=== PATIENT | female | born 1985 | race American Indian/Alaskan Native ===

== ENCOUNTER 2018-04-02 10:38 | Emergency (ER) | payer SELFPAY ==
[2018-04-02 10:56] VITALS: BP 124/76
[2018-04-02] MEDS ORDERED: IBUPROFEN PO ONE (11:11)
--- NOTE | 2018-04-02 11:15 | Emergency Department Report ---
ED Upper Extremity Inj HPI - General Chief Complaint: Extremity Injury, Upper Stated Complaint: SHARP PAIN/RT HAND/ARM NUMB Time Seen by Provider: 04/02/18 11:06 Source: patient Mode of arrival: Ambulatory Limitations: No Limitations - History of Present Illness Initial Comments: This is a 33-year-old female nontoxic, well nourished in appearance, no acute signs of distress presents to the ED with c/o of bilateral hand/wrist pain 3 days. Patient stated that right side is worse then left side. Patient stated has a shooting pain with some tingling sensation to 1st, 2nd, and 3rd fingers of right hand. 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 Patient denies any other trauma. Patient denies any numbness, tingling, fever, chills, nausea, vomiting, chest pain, shortness of breath, headache, stiff neck. Patient denies any joint swelling or joint redness. Patient denies decreased range of motion. Patient denies any allergies or significant past medical history. MD Complaint: Injury to:: left, right, wrist, hand -: days(s) (3) Other Extremity Injury: Hand: Right, Left, Wrist: Left, Right Other Injuries: none Place: work Severity scale (0 -10): 3 Improves With: immobilization Worsens With: movement of extremity Associated Symptoms: denies other symptoms. denies: weakness, numbness, neck pain, suspects foreign body, nausea/vomiting, heard/felt popping sensat - Related Data Previous Rx's Medication Instructions Recorded Last Taken Type ALBUTEROL Inhaler (OR & NICU) 2 puff IH QID PRN #1 inhalation 02/18/18 Unknown Rx [ProAir HFA Inhaler] Amoxicillin/Potassium Clav 1 each PO BID #14 tablet 02/18/18 Unknown Rx [Augmentin 875-125 Tablet] Fluticasone [Flonase] 1 spray NS QDAY #1 bottle 02/18/18 Unknown Rx HYDROcodone/APAP 5-325 [[place] 1 each PO Q4HR PRN #12 tablet 02/18/18 Unknown Rx 5/325] Naproxen [Naprosyn TAB] 500 mg PO Q8H PRN #20 tablet 04/02/18 Unknown Rx Allergies Allergy/AdvReac Type Severity Reaction Status Date / Time No Known Allergies Allergy Verified 04/02/18 10:56 ED Review of Systems ROS: Stated complaint: SHARP PAIN/RT HAND/ARM NUMB Other details as noted in HPI Constitutional: denies: chills, fever Eyes: denies: eye pain, eye discharge, vision change ENT: denies: ear pain, throat pain Respiratory: denies: cough, shortness of breath, wheezing Cardiovascular: denies: chest pain, palpitations Endocrine: no symptoms reported Gastrointestinal: denies: abdominal pain, nausea, diarrhea Genitourinary: denies: urgency, dysuria, discharge Musculoskeletal: arthralgia. denies: back pain, joint swelling Skin: denies: rash, lesions Neurological: denies: headache, weakness, paresthesias Psychiatric: denies: anxiety, depression Hematological/Lymphatic: denies: easy bleeding, easy bruising ED Past Medical Hx - Past Medical History Previous Medical History?: No Hx Hypertension: Yes - Surgical History Past Surgical History?: No - Social History Smoking Status: Current Every Day Smoker Substance Use Type: Alcohol, Marijuana - Medications Home Medications: Home Medications Medication Instructions Recorded Confirmed Last Taken Type ALBUTEROL Inhaler (OR & NICU) 2 puff IH QID PRN #1 inhalation 02/18/18 Unknown Rx [ProAir HFA Inhaler] Amoxicillin/Potassium Clav 1 each PO BID #14 tablet 02/18/18 Unknown Rx [Augmentin 875-125 Tablet] Fluticasone [Flonase] 1 spray NS QDAY #1 bottle 02/18/18 Unknown Rx HYDROcodone/APAP 5-325 [[place] 1 each PO Q4HR PRN #12 tablet 02/18/18 Unknown Rx 5/325] Naproxen [Naprosyn TAB] 500 mg PO Q8H PRN #20 tablet 04/02/18 Unknown Rx ED Physical Exam - General Limitations: No Limitations General appearance: alert, in no apparent distress - Head Head exam: Present: atraumatic, normocephalic - Neck Neck exam: Present: normal inspection, full ROM - Extremities Exam Extremities exam: Present: normal inspection, full ROM, normal capillary refill. Absent: tenderness, joint swelling - Expanded Upper Extremity Exam Left General: Present: normal inspection (bilateral exam) Shoulder Exam: Present: normal inspection (bilateral exam), full ROM (bilateral exam) Upper Arm exam: Present: normal inspection (bilateral exam), full ROM (bilateral exam) Elbow exam: Present: normal inspection (bilateral exam), full ROM (bilateral exam) Forearm Wrist exam: Present: normal inspection (bilateral exam), full ROM (bilateral exam). Absent: tenderness, swelling, abrasion, laceration, ecchymosis, deformity, dislocation, erythema, tenderness over anatomical snuff box, pain with axial thumb loading Hand Wrist exam: Present: normal inspection (bilateral exam), full ROM (bila teral exam), other (positive phalens test to right hand). Absent: tenderness, swelling, abrasion, laceration, ecchymosis, deformity, crepidus, dislocation, erythema, amputation, nail avulsion, subungual hematoma Neurosensory exam: Present: radial nerve intact, ulnar nerve intact, median nerve intact Vascular: Present: vascular compromise, normal capillary refill - Back Exam Back exam: Present: normal inspection, full ROM - Neurological Exam Neurological exam: Present: alert, oriented X3 - Psychiatric Psychiatric exam: Present: normal affect, normal mood - Skin Skin exam: Present: warm, dry, intact, normal color. Absent: rash ED Course Vital Signs 04/02/18 10:54 Temperature 97.8 F Pulse Rate 84 Respiratory 18 Rate Blood Pressure 124/76 O2 Sat by Pulse 98 Oximetry - Reevaluation(s) Reevaluation #1: 04/02/18 11:15 Patient is speaking in full sentences with no signs of distress noted. ED Medical Decision Making - Medical Decision Making This is a 33-year-old female that presents with arthralgias and right carpal tunnel syndrome. Patient is stable and was examined by me. I referred patient to an orthopedic doctor for further evaluation for possible MRI. Patient does have normal ROM with no tenderness and no joint swelling. No ecchymosis. no joint redness or swelling. Not warm to touch. No signs of cellulites present. Patient received a wrist immobilize to right wrist for pain comfort. Patient wa s instructed to RICE therapy. Patient received Motrin for pain. Patient is discharged with Naproxen. At time of discharge, the patient does not seem toxic or ill in appearance. No acute signs of distress noted. Patient agrees to discharge treatment plan of care. No further questions noted by the patient. Critical care attestation.: If time is entered above; I have spent that time in minutes in the direct care of this critically ill patient, excluding procedure time. ED Disposition Clinical Impression: Right carpal tunnel syndrome Arthralgia Qualifiers: Joint pain location: wrist Laterality: bilateral Qualified Code(s): M25.531 - Pain in right wrist; M25.532 - Pain in left wrist Disposition: TO HOME OR SELFCARE Is pt being admited?: No Does the pt Need Aspirin: No Condition: Stable Instructions: Carpal Tunnel Syndrome (ED), Arthralgia (ED) Additional Instructions: Follow-up with a orthopedic doctor in 3-5 days or if symptoms worsen and continue return to emergency room as soon as possible. Prescriptions: Naproxen [Naprosyn TAB] 500 mg PO Q8H PRN #20 tablet PRN Reason: Pain, Moderate (4-6) Referrals: PRIMARY CAREMD [Referring] - 3-5 Days SISSY NICOLE MD [Staff Physician] - 3-5 Days [facility] [Outside] - 3-5 Days Forms: Work/School Release Form(ED)
== END 2018-04-02 11:27 | disposition home or self-care (01) ==
LOC: ED 10:38
DX: G56.03 Carpal tunnel syndrome, bilateral upper limbs (principal)

== ENCOUNTER 2018-05-13 15:19 | Emergency (ER) | payer OTHER ==
--- NOTE | 2018-05-13 15:49 | Emergency Department Report ---
Blank Doc - Documentation Documentation: Come in for nausea right flank pain. Swelling of her ankles. Hx/o no dyuria, Increase urine frequency. Took Ibuprofen. This initial assessment diagnostic orders/clinical plan/treatment (s) is/Are subject change based on patient's health status, clinical progression and re- assessment by fellow clinical providers in the ED. Further treatment and work-up at subsequent clinical providers discretion. Patient/guardians urged not to elope from s their condition may be serious if not clinically assessed and managed. Inital order include:
[2018-05-13 16:19] LABS: Bilirubin,Urine NEG (Negative); Blood,Urine NEG (Negative); Color,Urine Straw (Yellow); Protein,Urine <15 mg/dL mg/dL (Negative); Urobilinogen,Urine < 2.0 mg/dL (<2.0)
[2018-05-13 16:35] LABS: Basophils # (Auto) 0.1 K/mm3 (0.0-0.1); Basophils % (Auto) 0.7 % (0.0-1.8); Eosinophils # (Auto) 0.4 K/mm3 (0.0-0.4); Eosinophils % (Auto) 5.7 % (0.0-4.3); Hematocrit 41.7 % (30.3-42.9); Lymphocytes # (Auto) 2.1 K/mm3 (1.2-5.4); Lymphocytes % (Auto) 30.5 % (13.4-35.0); Mean Corpuscular HGB Conc 34 % (30-34); Mean Corpuscular Volume 94 fl (79-97); Monocytes # (Auto) 0.3 K/mm3 (0.0-0.8); Monocytes % (Auto) 5.1 % (0.0-7.3); Platelet Count 195 K/mm3 (140-440); Red Blood Count 4.43 M/mm3 (3.65-5.03); Red Cell Distribution Width 14.5 % (13.2-15.2)
[2018-05-13 16:58] LABS: Alanine Aminotransferase 15 units/L (7-56); Albumin 3.7 g/dL (3.9-5); BUN/Creatinine Ratio 16; Blood Urea Nitrogen 11 mg/dL (7-17); Calcium 8.9 mg/dL (8.4-10.2); Hemolysis Index 6
--- NOTE | 2018-05-13 17:45 | Emergency Department Report ---
ED General Adult HPI - General Chief complaint: Pain General Stated complaint: RT SIDE ANKLE SWELLING/CHEST PAIN Time Seen by Provider: 05/13/18 15:45 Source: patient Mode of arrival: Ambulatory Limitations: No Limitations - History of Present Illness Initial comments: 33-year-old female with multiple complaints over the last 3 days including headache, right flank pain, generalized chest pain, bilateral ankle swelling. Patient denies fever, cough, shortness of breath. Patient reports urinary frequency, denies dysuria or hematuria. Patient reports history of hypertension, however not on any medication at this time. 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 -: days(s) (3) Location: head, chest, back, left, right, lower extremity Severity scale (0 -10): 10 Quality: aching Consistency: intermittent Improves with: immobilization Worsens with: movement Associated Symptoms: chest pain, headaches. denies: cough, fever/chills, nausea/vomiting, shortness of breath Treatments Prior to Arrival: NSAID - Related Data Previous Rx's Medication Instructions Recorded Last Taken Type ALBUTEROL Inhaler (OR & NICU) 2 puff IH QID PRN #1 inhalation 02/18/18 Unknown Rx [ProAir HFA Inhaler] Amoxicillin/Potassium Clav 1 each PO BID #14 tablet 02/18/18 Unknown Rx [Augmentin 875-125 Tablet] Fluticasone [Flonase] 1 spray NS QDAY #1 bottle 02/18/18 Unknown Rx HYDROcodone/APAP 5-325 [[place] 1 each PO Q4HR PRN #12 tablet 02/18/18 Unknown Rx 5/325] Naproxen [Naprosyn TAB] 500 mg PO Q8H PRN #20 tablet 04/02/18 Unknown Rx Amoxicillin [Trimox CAP] 500 mg PO Q8H #30 capsule 04/27/18 Unknown Rx Ibuprofen [Motrin 600 MG tab] 600 mg PO Q8H #15 tablet 04/27/18 Unknown Rx Methocarbamol [Robaxin-750] 750 mg PO Q6HR PRN #20 tablet 05/13/18 Unknown Rx hydroCHLOROthiazide [Hctz] 12.5 mg PO QDAY #30 capsule 05/13/18 Unknown Rx Allergies Allergy/AdvReac Type Severity Reaction Status Date / Time No Known Allergies Allergy Verified 05/13/18 15:20 ED Review of Systems ROS: Stated complaint: RT SIDE ANKLE SWELLING/CHEST PAIN Other details as noted in HPI Comment: All other systems reviewed and negative Constitutional: denies: chills, fever Respiratory: denies: cough, shortness of breath Cardiovascular: chest pain Gastrointestinal: denies: abdominal pain, nausea, vomiting, diarrhea Genitourinary: frequency. denies: dysuria, hematuria Musculoskeletal: back pain Neurological: headache. denies: weakness, numbness ED Past Medical Hx - Past Medical History Hx Hypertension: Yes - Surgical History Past Surgical History?: No - Social History Smoking Status: Never Smoker Substance Use Type: Marijuana - Medications Home Medications: Home Medications Medication Instructions Recorded Confirmed Last Taken Type ALBUTEROL Inhaler (OR & NICU) 2 puff IH QID PRN #1 inhalation 02/18/18 Unknown Rx [ProAir HFA Inhaler] Amoxicillin/Potassium Clav 1 each PO BID #14 tablet 02/18/18 Unknown Rx [Augmentin 875-125 Tablet] Fluticasone [Flonase] 1 spray NS QDAY #1 bottle 02/18/18 Unknown Rx HYDROcodone/APAP 5-325 [[place] 1 each PO Q4HR PRN #12 tablet 02/18/18 Unknown Rx 5/325] Naproxen [Naprosyn TAB] 500 mg PO Q8H PRN #20 tablet 04/02/18 Unknown Rx Amoxicillin [Trimox CAP] 500 mg PO Q8H #30 capsule 04/27/18 Unknown Rx Ibuprofen [Motrin 600 MG tab] 600 mg PO Q8H #15 tablet 04/27/18 Unknown Rx Methocarbamol [Robaxin-750] 750 mg PO Q6HR PRN #20 tablet 05/13/18 Unknown Rx hydroCHLOROthiazide [Hctz] 12.5 mg PO QDAY #30 capsule 05/13/18 Unknown Rx ED Physical Exam - General Limitations: No Limitations General appearance: alert, in no apparent distress - Head Head exam: Present: atraumatic, normocephalic - Eye Eye exam: Present: normal appearance - ENT ENT exam: Present: mucous membranes moist - Neck Neck exam: Present: normal inspection - Respiratory Respiratory exam: Present: normal lung sounds bilaterally. Absent: respiratory distress - Cardiovascular Cardiovascular Exam: Present: regular rate, normal rhythm - GI/Abdominal GI/Abdominal exam: Present: soft. Absent: distended, tenderness - Extremities Exam Extremities exam: Present: pedal edema (trace edema bilateral ankles). Absent: calf tenderness - Back Exam Back exam: Present: paraspinal tenderness (right mid back) - Neurological Exam Neurological exam: Present: alert, oriented X3, CN II-XII intact. Absent: motor sensory deficit - Psychiatric Psychiatric exam: Present: normal affect, normal mood - Skin Skin exam: Present: warm, dry, intact, normal color ED Course Vital Signs 05/13/18 05/13/18 15:42 18:35 Temperature 97.9 F Pulse Rate 97 H 81 Respiratory 18 18 Rate Blood Pressure 160/94 Blood Pressure 154/94 [Left] O2 Sat by Pulse 98 100 Oximetry ED Medical Decision Making - Lab Data Result diagrams: 05/13/18 16:05 05/13/18 16:05 - EKG Data -: EKG Interpreted by Me EKG shows normal: sinus rhythm, axis, intervals, QRS complexes, ST-T waves Rate: normal - EKG Data Interpretation: no acute changes - Radiology Data Radiology results: image reviewed interpreted by me: CXR: neg acute - Medical Decision Making Workup is unremarkable. Labs normal, chest x-ray, EKG, troponin all normal. UA normal. Patient likely with ankle edema and back strain due to strenuous nature of her job. The patient has untreated hypertension, so eill place her on HCTZ which will also help with her ankle swelling. Renal function normal. Patient will also receive a prescription for Robaxin for muscle strain. She has been given information for outpatient follow-up. Return precautions given. - Differential Diagnosis UTI, pyelonephritis, atypical chest pain, costochondritis, ACS Critical care attestation.: If time is entered above; I have spent that time in minutes in the direct care of this critically ill patient, excluding procedure time. ED Disposition Clinical Impression: Acute myofascial strain, Essential hypertension, Atypical chest pain Disposition: TO HOME OR SELFCARE Is pt being admited?: No Condition: Stable Instructions: Chest Pain (ED), Muscle Strain (ED), Hypertension (ED) Prescriptions: hydroCHLOROthiazide [Hctz] 12.5 mg PO QDAY #30 capsule Methocarbamol [Robaxin-750] 750 mg PO Q6HR PRN #20 tablet PRN Reason: Spasms Referrals: ISMA SAGE MD [Primary Care Provider] - 3-5 Days ARMAND VOGEL MD [Staff Physician] - 3-5 Days Time of Disposition: 18:21
[2018-05-13 18:37] VITALS: BP 154/94
--- NOTE | 2018-05-13 19:01 | XRay Report ---
FINAL REPORT EXAM: XR CHEST ROUTINE 2V HISTORY: pain swollen ankles for 3 days. TECHNIQUE: PA and lateral views of the chest Comparison: None FINDINGS: There is no evidence of infiltrate, pneumothorax or pleural fluid collection. The cardiac silhouette appears to be enlarged. The thoracic aorta and bony structures are unremarkable. IMPRESSION: 1. No evidence of an acute pulmonary process. 2. Enlarged cardiac silhouette.
== END 2018-05-13 18:37 | disposition home or self-care (01) ==
LOC: ED 15:19
DX: S39.012A Strain of muscle, fascia and tendon of lower back, initial encounter (principal); I10 Essential (primary) hypertension; F12.10 Cannabis abuse, uncomplicated; Z79.899 Other long term (current) drug therapy; X50.3XXA Overexertion from repetitive movements, initial encounter; Y93.89 Activity, other specified; Y92.89 Other specified places as the place of occurrence of the external cause; Y99.8 Other external cause status
CPT/HCPCS: 36415; 71046; 80053; 81001; 84484; 84703; 85025; 93005; 93010

== ENCOUNTER 2018-05-25 19:53 | Emergency (ER) | payer OTHER ==
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
[2018-05-25 20:10] VITALS: BP 147/98
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
== END 2018-05-25 23:15 | disposition left against medical advice (07) ==
LOC: ED 19:53
DX: M25.511 Pain in right shoulder (principal); M54.5 Low back pain; R10.9 Unspecified abdominal pain; Z53.21 Procedure and treatment not carried out due to patient leaving prior to being seen by health care provider
CPT/HCPCS: 72100

== ENCOUNTER 2018-06-22 09:33 | Emergency (ER) | payer SELFPAY ==
[2018-06-22 09:46] VITALS: BP 116/74
[2018-06-22] MEDS ORDERED: TORADOL IM ONE (11:19)
[2018-06-22] MEDS ORDERED: ZOFRAN ODT PO ONE (11:20)
[2018-06-22] MEDS ORDERED: SOLU-Medrol IM ONE (11:20)
[2018-06-22] MEDS ORDERED: NORCO 10/325 PO ONE (11:20)
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
== END 2018-06-22 11:59 | disposition home or self-care (01) ==
LOC: ED 09:33
DX: S16.1XXA Strain of muscle, fascia and tendon at neck level, initial encounter (principal); I10 Essential (primary) hypertension; F17.200 Nicotine dependence, unspecified, uncomplicated
CPT/HCPCS: 96372; 99282; J1885; J2930; Q0162

== ENCOUNTER 2018-08-23 00:51 | Emergency (ER) | payer SELFPAY ==
[2018-08-23 01:02] VITALS: BP 137/77
[2018-08-23 01:22] LABS: HCG Qualitative,Urine Negative (Negative)
--- NOTE | 2018-08-23 01:26 | Emergency Department Report ---
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 Fall Witnessed: no Place Fall Occurred: home Loss of Consciousness: none Prolonged Down Time?: no Symptoms Prior to Fall: none Location: back Location - Extremities: Left: Ankle Severity: mild Severity scale (0 -10): 1 (masses is) Context: tripped/slipped ( all) - Related Data Previous Rx's Medication Instructions Recorded Last Taken Type ALBUTEROL Inhaler (OR & NICU) 2 puff IH QID PRN #1 inhalation 02/18/18 Unknown Rx [ProAir HFA Inhaler] Amoxicillin/Potassium Clav 1 each PO BID #14 tablet 02/18/18 Unknown Rx [Augmentin 875-125 Tablet] Fluticasone [Flonase] 1 spray NS QDAY #1 bottle 02/18/18 Unknown Rx HYDROcodone/APAP 5-325 [[place] 1 each PO Q4HR PRN #12 tablet 02/18/18 Unknown Rx 5/325] Naproxen [Naprosyn TAB] 500 mg PO Q8H PRN #20 tablet 04/02/18 Unknown Rx Amoxicillin [Trimox CAP] 500 mg PO Q8H #30 capsule 04/27/18 Unknown Rx Ibuprofen [Motrin 600 MG tab] 600 mg PO Q8H #15 tablet 04/27/18 Unknown Rx Methocarbamol [Robaxin-750] 750 mg PO Q6HR PRN #20 tablet 05/13/18 Unknown Rx hydroCHLOROthiazide [Hctz] 12.5 mg PO QDAY #30 capsule 05/13/18 Unknown Rx Ibuprofen [Motrin] 800 mg PO Q8HR PRN #30 tablet 06/22/18 Unknown Rx traMADol [Ultram] 50 mg PO Q6HR PRN #24 tablet 06/22/18 Unknown Rx Cyclobenzaprine [Flexeril] 10 mg PO TID PRN #30 tablet 08/23/18 Unknown Rx Naproxen [Naprosyn TAB] 500 mg PO BID #30 tablet 08/23/18 Unknown Rx Allergies Allergy/AdvReac Type Severity Reaction Status Date / Time No Known Allergies Allergy Verified 05/13/18 15:20 ED Review of Systems ROS: Stated complaint: FALL/BACK PAIN Other details as noted in HPI Constitutional: denies: chills, fever Eyes: denies: eye pain, eye discharge, vision change ENT: denies: ear pain, throat pain Respiratory: denies: cough, shortness of breath, wheezing Cardiovascular: denies: chest pain, palpitations Endocrine: no symptoms reported Gastrointestinal: denies: abdominal pain, nausea, diarrhea Genitourinary: denies: urgency, dysuria, discharge Musculoskeletal: back pain, other. denies: joint swelling, arthralgia (shoulder pain right lateral ), myalgia Skin: denies: rash, lesions Neurological: denies: headache, weakness, paresthesias Psychiatric: denies: anxiety, depression Hematological/Lymphatic: denies: easy bleeding, easy bruising ED Past Medical Hx - Past Medical History Previous Medical History?: Yes Hx Hypertension: Yes Additional medical history: Morbid Obesity - Surgical History Past Surgical History?: No - Social History Smoking Status: Current Every Day Smoker Substance Use Type: None, Alcohol - Medications Home Medications: Home Medications Medication Instructions Recorded Confirmed Last Taken Type ALBUTEROL Inhaler (OR & NICU) 2 puff IH QID PRN #1 inhalation 02/18/18 Unknown Rx [ProAir HFA Inhaler] Amoxicillin/Potassium Clav 1 each PO BID #14 tablet 02/18/18 Unknown Rx [Augmentin 875-125 Tablet] Fluticasone [Flonase] 1 spray NS QDAY #1 bottle 02/18/18 Unknown Rx HYDROcodone/APAP 5-325 [[place] 1 each PO Q4HR PRN #12 tablet 02/18/18 Unknown Rx 5/325] Naproxen [Naprosyn TAB] 500 mg PO Q8H PRN #20 tablet 04/02/18 Unknown Rx Amoxicillin [Trimox CAP] 500 mg PO Q8H #30 capsule 04/27/18 Unknown Rx Ibuprofen [Motrin 600 MG tab] 600 mg PO Q8H #15 tablet 04/27/18 Unknown Rx Methocarbamol [Robaxin-750] 750 mg PO Q6HR PRN #20 tablet 05/13/18 Unknown Rx hydroCHLOROthiazide [Hctz] 12.5 mg PO QDAY #30 capsule 05/13/18 Unknown Rx Ibuprofen [Motrin] 800 mg PO Q8HR PRN #30 tablet 06/22/18 Unknown Rx traMADol [Ultram] 50 mg PO Q6HR PRN #24 tablet 06/22/18 Unknown Rx Cyclobenzaprine [Flexeril] 10 mg PO TID PRN #30 tablet 08/23/18 Unknown Rx Naproxen [Naprosyn TAB] 500 mg PO BID #30 tablet 08/23/18 Unknown Rx ED Physical Exam - General Limitations: No Limitations General appearance: alert, in no apparent distress - Head Head exam: Present: normocephalic, normal inspection - Expanded Head Exam Expanded Head exam: Absent: laceration, abrasion, contusion, hematoma, racoon eyes, alcazar's sign, tenderness of temporal artery, CSF rhinorrhea, CSF otorrhea - Eye Eye exam: Present: normal appearance, PERRL. Absent: scleral icterus, nystagmus Pupils: Present: normal accommodation, mydriatic - ENT ENT exam: Present: mucous membranes moist - Neck Neck exam: Present: normal inspection, tenderness, full ROM, lymphadenopathy. Absent: meningismus - Respiratory Respiratory exam: Present: normal lung sounds bilaterally. Absent: respiratory distress - Cardiovascular Cardiovascular Exam: Present: regular rate, normal rhythm, normal heart sounds. Absent: systolic murmur, diastolic murmur, rubs, gallop - GI/Abdominal GI/Abdominal exam: Present: soft, guarding, rebound, normal bowel sounds, bruit, hernia. Absent: tenderness - Rectal Rectal exam: Present: deferred - External exam: Present: normal external exam - Extremities Exam Extremities exam: Present: normal inspection, full ROM, tenderness - Back Exam Back exam: Present: normal inspection, full ROM, tenderness (mild bilat neck bon str. ), muscle spasm, rash noted. Absent: CVA tenderness (R), CVA tenderness (L), paraspinal tenderness, vertebral tenderness - Expanded Back Exam Expanded Back exam: Present: intact bulbocavernosus reflex, saddle anesthesia, normal rectal tone, decreased rectal tone Back exam: Sciatic Notch Tenderness: Right, Positive Straight Leg Raise: Right - Neurological Exam Neurological exam: Present: alert, altered, oriented X3, CN II-XII intact, normal gait, abnormal gait, reflexes normal - Expanded Neurological Exam Expanded Neurological exam: Present: innattentive Patient oriented to: Present: person, place, time Speech: Present: fluid speech Cranial nerves: EOM's Intact: Normal, Gag Reflex: Normal, Tongue Deviation: Normal, Nystagmus: Normal, Facial Sensation: Normal, Facial Palsy with Forehead Movement: Normal, Facial Palsy without Forehead Movement: Normal Cerebellar function: Finger to Nose: Normal, Heel to Richard: Normal, Romberg: Normal Upper motor neuron: Arie Neglect: Normal, Pronator Drift: Normal, Babinski Sign: Normal, Sensory Extinction: Normal Sensory exam: Upper Extremity Light Touch: Normal, Upper Extremity Pin Prick: Normal, Lower Extremity Temperature: Normal, LE 2 Point Discrimination: Normal Motor strength exam: RUE: 5, LUE: 5, RLE: 5, LLE: 5 DTR: bicep (R): 0, bicep (L): 0, tricep (R): 0, tricep (L): 0, knee (R): 0 Best Eye Response ([place]): (4) open spontaneously Best Motor Response ([place]): (6) obeys commands Best Verbal Response ([place]): (5) oriented Lizeth Total: 15 - Psychiatric Psychiatric exam: Present: normal affect, normal mood - Skin Skin exam: Present: warm, dry, intact, normal color. Absent: rash ED Course Vital Signs 08/23/18 08/23/18 00:57 01:00 Temperature 97.9 F 97.9 F Pulse Rate 94 H Respiratory 20 20 Rate Blood Pressure 131/77 Blood Pressure 137/77 [Left] O2 Sat by Pulse 100 Oximetry ED Medical Decision Making - Radiology Data Radiology results: report reviewed, image reviewed Ordering Physician: HAL GONSALES NP Date of Service: 02/22/18 Procedure(s): XR chest routine 2V Accession Number(s): [id number] cc: HAL GONSALES NP Fluoro Time In Minutes: FINAL REPORT EXAM: XR CHEST ROUTINE 2V HISTORY: chest pain TECHNIQUE: PA and lateral views of the chest were submitted. FINDINGS: The heart size and vascularity appear normal. The lungs are clear. Pleural fluid is not seen. There is a pacemaker overlying the left chest wall with lead in the right ventricle. The skeletal structures are well-maintained. IMPRESSION: No acute cardiopulmonary process. Transcribed By: RB Dictated By: SISSY ROMO MD Electronically Authenticated By: SISSY ROMO MD Signed Date/Time: 05/16/181907 DD/ TD/TT: 02/23/1841 - Medical Decision Making This is a lumbar strainactual soft tissue abnormality plan NSAIDs muscle relaxants moist heat therapy follow-up PCP in 2-3 days return to ED should symptoms worsen patient denies agreement and understanding of discharge plan DC'd home in stable condition at this time. Critical care attestation.: If time is entered above; I have spent that time in minutes in the direct care of this critically ill patient, excluding procedure time. ED Disposition Clinical Impression: Fall Qualifiers: Encounter type: initial encounter Qualified Code(s): W19.XXXA - Unspecified fall, initial encounter Lumbar strain Qualifiers: Encounter type: sequela Qualified Code(s): S39.012S - Strain of muscle, fascia and tendon of lower back, sequela Disposition: DC-01 TO HOME OR SELFCARE Is pt being admited?: No Does the pt Need Aspirin: No Condition: Stable Instructions: Low Back Strain (ED), Core Strengthening Exercises (GEN) Prescriptions: Cyclobenzaprine [Flexeril] 10 mg PO TID PRN #30 tablet PRN Reason: Muscle Spasm Naproxen [Naprosyn TAB] 500 mg PO BID #30 tablet Referrals: ISMA SAGE MD [Primary Care Provider] - 3-5 Days Forms: AMA Form, Work/School Release Form(ED) Time of Disposition: 02:43
[2018-08-23] MEDS ORDERED: TORADOL IM ONE (02:02)
--- NOTE | 2018-08-23 02:12 | XRay Report ---
PROCEDURE: XR SPINE LUMBOSACRAL 2-3V TECHNIQUE: 3 views of the lumbar spine were obtained. HISTORY: lower back pain COMPARISONS: 05/25/2018 FINDINGS: The disc heights and alignment appear normal. There is no evidence of fracture. The SI joints appear normal. The soft tissues are unremarkable. IMPRESSION: Within normal limits. This document is electronically signed by Andry Mondragon MD., August 23 2018 02:10:54 AM ET
== END 2018-08-23 02:50 | disposition home or self-care (01) ==
LOC: ED 00:51
DX: S39.012A Strain of muscle, fascia and tendon of lower back, initial encounter (principal); I10 Essential (primary) hypertension; F17.200 Nicotine dependence, unspecified, uncomplicated; E66.01 Morbid (severe) obesity due to excess calories; Z68.42 Body mass index [BMI] 45.0-49.9, adult; W01.198A Fall on same level from slipping, tripping and stumbling with subsequent striking against other object, initial encounter; Y93.89 Activity, other specified; Y92.89 Other specified places as the place of occurrence of the external cause; Y99.8 Other external cause status
CPT/HCPCS: 72100; 81025; 96372; 99283; J1885

== ENCOUNTER 2018-09-28 19:09 | Emergency (ER) | payer OTHER ==
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
[2018-09-28 20:50] VITALS: BP 125/77
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
[2018-09-28] MEDS ORDERED: TORADOL IM ONE (21:12)
[2018-09-28] MEDS ORDERED: TORADOL ONE (21:24)
== END 2018-09-28 21:45 | disposition home or self-care (01) ==
LOC: ED 19:09
DX: M51.36 Other intervertebral disc degeneration, lumbar region (principal); M50.30 Other cervical disc degeneration, unspecified cervical region; F17.200 Nicotine dependence, unspecified, uncomplicated; I10 Essential (primary) hypertension; E66.01 Morbid (severe) obesity due to excess calories; Z68.34 Body mass index [BMI] 34.0-34.9, adult; Z79.1 Long term (current) use of non-steroidal anti-inflammatories (NSAID); Z79.899 Other long term (current) drug therapy
CPT/HCPCS: 96372; 99282; J1885

== ENCOUNTER 2018-10-22 19:35 | Emergency (ER) | payer SELFPAY ==
--- NOTE | 2018-10-22 20:08 | Emergency Department Report ---
Blank Doc - Documentation Documentation: This is a 33-year-old female that presents with body aches, SOB, and headaches. Denies any chest pain. This initial assessment/diagnostic orders/clinical plan/treatment(s) is/are subject to change based on patient's health status, clinical progression and re- assessment by fellow clinical providers in the ED. Further treatment and workup at subsequent clinical providers discretion. Patient/guardians urged not to elope from the ED as their condition may be serious if not clinically assessed and managed. Initial orders include: 1- Patient sent to [facility] for further evaluation and treatment 2- labs 3- CXR
[2018-10-22 20:47] LABS: Basophils # (Auto) 0.1 K/mm3 (0.0-0.1); Basophils % (Auto) 0.8 % (0.0-1.8); Eosinophils # (Auto) 0.3 K/mm3 (0.0-0.4); Eosinophils % (Auto) 4.1 % (0.0-4.3); Hematocrit 41.1 % (30.3-42.9); Hemoglobin 14.3 gm/dl (10.1-14.3); Lymphocytes # (Auto) 2.4 K/mm3 (1.2-5.4); Lymphocytes % (Auto) 36.5 % (13.4-35.0); Mean Corpuscular HGB Conc 35 % (30-34); Mean Corpuscular Volume 92 fl (79-97); Monocytes # (Auto) 0.4 K/mm3 (0.0-0.8); Monocytes % (Auto) 5.4 % (0.0-7.3); Platelet Count 218 K/mm3 (140-440); Red Blood Count 4.47 M/mm3 (3.65-5.03); Red Cell Distribution Width 14.3 % (13.2-15.2)
[2018-10-22 21:00] LABS: Bilirubin,Urine NEG (Negative); Blood,Urine NEG (Negative); Color,Urine Yellow (Yellow); Mucus,Urine FEW /HPF; Protein,Urine <15 mg/dL mg/dL (Negative); Urobilinogen,Urine < 2.0 mg/dL (<2.0)
[2018-10-22 21:10] LABS: Alanine Aminotransferase 20 units/L (7-56); Albumin 4.1 g/dL (3.9-5); BUN/Creatinine Ratio 11; Blood Urea Nitrogen 8 mg/dL (7-17); Calcium 9.1 mg/dL (8.4-10.2); Hemolysis Index 4
[2018-10-22] MEDS ORDERED: ANTIVERT PO ONE (21:36)
[2018-10-22] MEDS ORDERED: AUGMENTIN 875 MG PO ONE (21:36)
[2018-10-22 21:42] VITALS: BP 127/76
--- NOTE | 2018-10-22 21:42 | Emergency Department Report ---
ED General Adult HPI - General Chief complaint: Dyspnea/Respdistress Stated complaint: SOB,HEADACHE, DIZZY, RUNNY NOSE, SWEATING Time Seen by Provider: 10/22/18 20:07 Source: patient Mode of arrival: Ambulatory Limitations: No Limitations - History of Present Illness Initial comments: Patient is a 33-year-old Female who is presenting with 2-3 days of a dry cough with multiple other symptoms. Patient states that she has mild shortness of breath. Patient also is complaining of some sinus tenderness with associated dizziness. Patient states that today at work she was very dizzy and describes as a spinning sensation. Patient has pain in the mid face just above the nose. States pain is 6 out of 10 in severity. Patient also with body aches and p ossible fever earlier today. Patient states she was very hot and then was diaphoretic. Patient denies any nausea vomiting diarrhea or dysuria at this time. - Related Data Previous Rx's Medication Instructions Recorded Last Taken Type ALBUTEROL Inhaler (OR & NICU) 2 puff IH QID PRN #1 inhalation 02/18/18 Unknown Rx [ProAir HFA Inhaler] Amoxicillin/Potassium Clav 1 each PO BID #14 tablet 02/18/18 Unknown Rx [Augmentin 875-125 Tablet] Fluticasone [Flonase] 1 spray NS QDAY #1 bottle 02/18/18 Unknown Rx HYDROcodone/APAP 5-325 [[place] 1 each PO Q4HR PRN #12 tablet 02/18/18 Unknown Rx 5/325] Naproxen [Naprosyn TAB] 500 mg PO Q8H PRN #20 tablet 04/02/18 Unknown Rx Amoxicillin [Trimox CAP] 500 mg PO Q8H #30 capsule 04/27/18 Unknown Rx Ibuprofen [Motrin 600 MG tab] 600 mg PO Q8H #15 tablet 04/27/18 Unknown Rx Methocarbamol [Robaxin-750] 750 mg PO Q6HR PRN #20 tablet 05/13/18 Unknown Rx hydroCHLOROthiazide [Hctz] 12.5 mg PO QDAY #30 capsule 05/13/18 Unknown Rx Ibuprofen [Motrin] 800 mg PO Q8HR PRN #30 tablet 06/22/18 Unknown Rx traMADol [Ultram] 50 mg PO Q6HR PRN #24 tablet 06/22/18 Unknown Rx Cyclobenzaprine [Flexeril] 10 mg PO TID PRN #30 tablet 08/23/18 Unknown Rx Naproxen [Naprosyn TAB] 500 mg PO BID #30 tablet 08/23/18 Unknown Rx Cyclobenzaprine [Flexeril] 10 mg PO TID PRN #20 tablet 09/28/18 Unknown Rx Ibuprofen [Motrin 800 MG tab] 800 mg PO Q8HR PRN #15 tablet 09/28/18 Unknown Rx Amoxicillin/Potassium Clav 1 each PO BID #14 tablet 10/22/18 Unknown Rx [Augmentin 875-125 Tablet] Fluticasone [Flonase] 1 spray NS QDAY #1 bottle 10/22/18 Unknown Rx Meclizine [Antivert] 25 mg PO TID PRN #12 tablet 10/22/18 Unknown Rx Allergies Allergy/AdvReac Type Severity Reaction Status Date / Time No Known Allergies Allergy Verified 05/13/18 15:20 ED Review of Systems ROS: Stated complaint: SOB,HEADACHE, DIZZY, RUNNY NOSE, SWEATING Other details as noted in HPI Comment: All other systems reviewed and negative ED Past Medical Hx - Past Medical History Previous Medical History?: Yes Hx Hypertension: Yes Additional medical history: Morbid Obesity - Surgical History Past Surgical History?: No - Social History Smoking Status: Former Smoker Substance Use Type: None - Medications Home Medications: Home Medications Medication Instructions Recorded Confirmed Last Taken Type ALBUTEROL Inhaler (OR & NICU) 2 puff IH QID PRN #1 inhalation 02/18/18 Unknown Rx [ProAir HFA Inhaler] Amoxicillin/Potassium Clav 1 each PO BID #14 tablet 02/18/18 Unknown Rx [Augmentin 875-125 Tablet] Fluticasone [Flonase] 1 spray NS QDAY #1 bottle 02/18/18 Unknown Rx HYDROcodone/APAP 5-325 [[place] 1 each PO Q4HR PRN #12 tablet 02/18/18 Unknown Rx 5/325] Naproxen [Naprosyn TAB] 500 mg PO Q8H PRN #20 tablet 04/02/18 Unknown Rx Amoxicillin [Trimox CAP] 500 mg PO Q8H #30 capsule 04/27/18 Unknown Rx Ibuprofen [Motrin 600 MG tab] 600 mg PO Q8H #15 tablet 04/27/18 Unknown Rx Methocarbamol [Robaxin-750] 750 mg PO Q6HR PRN #20 tablet 05/13/18 Unknown Rx hydroCHLOROthiazide [Hctz] 12.5 mg PO QDAY #30 capsule 05/13/18 Unknown Rx Ibuprofen [Motrin] 800 mg PO Q8HR PRN #30 tablet 06/22/18 Unknown Rx traMADol [Ultram] 50 mg PO Q6HR PRN #24 tablet 06/22/18 Unknown Rx Cyclobenzaprine [Flexeril] 10 mg PO TID PRN #30 tablet 08/23/18 Unknown Rx Naproxen [Naprosyn TAB] 500 mg PO BID #30 tablet 08/23/18 Unknown Rx Cyclobenzaprine [Flexeril] 10 mg PO TID PRN #20 tablet 09/28/18 Unknown Rx Ibuprofen [Motrin 800 MG tab] 800 mg PO Q8HR PRN #15 tablet 09/28/18 Unknown Rx Amoxicillin/Potassium Clav 1 each PO BID #14 tablet 10/22/18 Unknown Rx [Augmentin 875-125 Tablet] Fluticasone [Flonase] 1 spray NS QDAY #1 bottle 10/22/18 Unknown Rx Meclizine [Antivert] 25 mg PO TID PRN #12 tablet 10/22/18 Unknown Rx ED Physical Exam - General Limitations: No Limitations General appearance: alert, in no apparent distress - Head Head exam: Present: atraumatic, normocephalic - Expanded Head Exam Expanded 1 - sinus tenderness - Eye Eye exam: Present: normal appearance - ENT ENT exam: Present: normal orophraynx, mucous membranes moist - Neck Neck exam: Present: normal inspection, full ROM. Absent: meningismus, lymphadenopathy - Respiratory Respiratory exam: Present: normal lung sounds bilaterally. Absent: respiratory distress, wheezes, rales, rhonchi - Cardiovascular Cardiovascular Exam: Present: regular rate, normal rhythm, normal heart sounds. Absent: systolic murmur, diastolic murmur, rubs, gallop - GI/Abdominal GI/Abdominal exam: Present: soft, normal bowel sounds. Absent: distended, tenderness, guarding, rebound - Extremities Exam Extremities exam: Present: normal inspection - Back Exam Back exam: Present: normal inspection - Neurological Exam Neurological exam: Present: alert, oriented X3 - Psychiatric Psychiatric exam: Present: normal affect, normal mood - Skin Skin exam: Present: warm, dry, intact, normal color. Absent: rash ED Course Vital Signs 10/22/18 19:46 Temperature 98.1 F Pulse Rate 94 H Respiratory 20 Rate Blood Pressure 123/87 O2 Sat by Pulse 93 Oximetry ED Medical Decision Making - Lab Data Result diagrams: 10/22/18 20:30 10/22/18 20:30 Lab Results 10/22/18 10/22/18 10/22/18 Range/Units 20:18 20:30 20:30 WBC 6.6 (4.5-11.0) K/mm3 RBC 4.47 (3.65-5.03) M/mm3 Hgb 14.3 (10.1-14.3) gm/dl Hct 41.1 (30.3-42.9) % MCV 92 (79-97) fl MCH 32 (28-32) pg MCHC 35 H (30-34) % RDW 14.3 (13.2-15.2) % Plt Count 218 (140-440) K/mm3 Lymph % (Auto) 36.5 H (13.4-35.0) % [place] % (Auto) 5.4 (0.0-7.3) % Eos % (Auto) 4.1 (0.0-4.3) % Baso % (Auto) 0.8 (0.0-1.8) % Lymph # 2.4 (1.2-5.4) K/mm3 [place] # 0.4 (0.0-0.8) K/mm3 Eos # 0.3 (0.0-0.4) K/mm3 Baso # 0.1 (0.0-0.1) K/mm3 Seg Neutrophils % 53.2 (40.0-70.0) % Seg Neutrophils # 3.5 (1.8-7.7) K/mm3 Sodium 137 (137-145) mmol/L Potassium 3.5 L (3.6-5.0) mmol/L Chloride 101.6 (98-107) mmol/L Carbon Dioxide 24 (22-30) mmol/L Anion Gap 15 mmol/L BUN 8 (7-17) mg/dL Creatinine 0.7 (0.7-1.2) mg/dL Estimated GFR > 60 ml/min BUN/Creatinine Ratio 11 % Glucose 89 (65-100) mg/dL Calcium 9.1 (8.4-10.2) mg/dL Total Bilirubin 0.40 (0.1-1.2) mg/dL AST 19 (5-40) units/L ALT 20 (7-56) units/L Alkaline Phosphatase 70 (35-129) units/L Total Protein 8.1 (6.3-8.2) g/dL Albumin 4.1 (3.9-5) g/dL Albumin/Globulin Ratio 1.0 % HCG, Qual (Negative) Urine Color Yellow (Yellow) Urine Turbidity Slightly-cloudy (Clear) Urine pH 5.0 (5.0-7.0) Ur Specific [place] 1.024 (1.003-1.030) Urine Protein <15 mg/dl (Negative) mg/dL Urine Glucose (UA) Neg (Negative) mg/dL Urine Ketones Neg (Negative) mg/dL Urine Blood Neg (Negative) Urine Nitrite Neg (Negative) Urine Bilirubin Neg (Negative) Urine Urobilinogen < 2.0 (<2.0) mg/dL Ur Leukocyte Esterase Sm (Negative) Urine WBC (Auto) 18.0 H (0.0-6.0) /HPF Urine RBC (Auto) 5.0 (0.0-6.0) /HPF U Epithel Cells (Auto) 5.0 (0-13.0) /HPF Urine Mucus Few /HPF 10/22/18 Range/Units 20:30 WBC (4.5-11.0) K/mm3 RBC (3.65-5.03) M/mm3 Hgb (10.1-14.3) gm/dl Hct (30.3-42.9) % MCV (79-97) fl MCH (28-32) pg MCHC (30-34) % RDW (13.2-15.2) % Plt Count (140-440) K/mm3 Lymph % (Auto) (13.4-35.0) % [place] % (Auto) (0.0-7.3) % Eos % (Auto) (0.0-4.3) % Baso % (Auto) (0.0-1.8) % Lymph # (1.2-5.4) K/mm3 [place] # (0.0-0.8) K/mm3 Eos # (0.0-0.4) K/mm3 Baso # (0.0-0.1) K/mm3 Seg Neutrophils % (40.0-70.0) % Seg Neutrophils # (1.8-7.7) K/mm3 Sodium (137-145) mmol/L Potassium (3.6-5.0) mmol/L Chloride (98-107) mmol/L Carbon Dioxide (22-30) mmol/L Anion Gap mmol/L BUN (7-17) mg/dL Creatinine (0.7-1.2) mg/dL Estimated GFR ml/min BUN/Creatinine Ratio % Glucose (65-100) mg/dL Calcium (8.4-10.2) mg/dL Total Bilirubin (0.1-1.2) mg/dL AST (5-40) units/L ALT (7-56) units/L Alkaline Phosphatase (35-129) units/L Total Protein (6.3-8.2) g/dL Albumin (3.9-5) g/dL Albumin/Globulin Ratio % HCG, Qual Negative (Negative) Urine Color (Yellow) Urine Turbidity (Clear) Urine pH (5.0-7.0) Ur Specific [place] (1.003-1.030) Urine Protein (Negative) mg/dL Urine Glucose (UA) (Negative) mg/dL Urine Ketones (Negative) mg/dL Urine Blood (Negative) Urine Nitrite (Negative) Urine Bilirubin (Negative) Urine Urobilinogen (<2.0) mg/dL Ur Leukocyte Esterase (Negative) Urine WBC (Auto) (0.0-6.0) /HPF Urine RBC (Auto) (0.0-6.0) /HPF U Epithel Cells (Auto) (0-13.0) /HPF Urine Mucus /HPF - Radiology Data Radiology results: image reviewed (chest x-ray is within normal limits) - Medical Decision Making Patient is a 33-year-old female who is complaining of a dry cough sinus tenderness with some vertiginous symptoms as well. Patient likely with fever earlier today. Patient started on Augmentin and Flonase. Antivert patient will be discharged home Critical care attestation.: If time is entered above; I have spent that time in minutes in the direct care of this critically ill patient, excluding procedure time. ED Disposition Clinical Impression: Vertigo Acute sinusitis Qualifiers: Sinusitis location: ethmoidal Recurrence: non-recurrent Qualified Code(s): J01.20 - Acute ethmoidal sinusitis, unspecified Upper respiratory infection Qualifiers: URI type: unspecified URI Qualified Code(s): J06.9 - Acute upper respiratory infection, unspecified Disposition: TO HOME OR SELFCARE Is pt being admited?: No Does the pt Need Aspirin: No Condition: Stable Instructions: Sinusitis (ED), Vertigo (ED) Referrals: ISMA SAGE MD [Primary Care Provider] - 3-5 Days Time of Disposition: 21:42
--- NOTE | 2018-10-22 21:53 | XRay Report ---
CHEST 2 VIEWS INDICATION / CLINICAL INFORMATION: sob. Headache and dizziness. COMPARISON: 05/13/18 FINDINGS: SUPPORT DEVICES: None. HEART / MEDIASTINUM: Heart is upper normal size and stable. LUNGS / PLEURA: No significant pulmonary or pleural abnormality. No pneumothorax. ADDITIONAL FINDINGS: No significant additional findings. IMPRESSION: 1. No acute findings. No significant change. Signer Name: Keira Awad MD Signed: 10/22/2018 9:49 PM Workstation Name: [id number]
== END 2018-10-22 22:00 | disposition home or self-care (01) ==
LOC: ED 19:35
DX: J01.20 Acute ethmoidal sinusitis, unspecified (principal); J06.9 Acute upper respiratory infection, unspecified; R42 Dizziness and giddiness; I10 Essential (primary) hypertension; E66.01 Morbid (severe) obesity due to excess calories; Z68.42 Body mass index [BMI] 45.0-49.9, adult; Z87.891 Personal history of nicotine dependence; Z79.1 Long term (current) use of non-steroidal anti-inflammatories (NSAID); Z79.899 Other long term (current) drug therapy
CPT/HCPCS: 36415; 71046; 80053; 81001; 84703; 85025; 87086; 99283

== ENCOUNTER 2018-11-25 14:26 | Emergency (ER) | payer SELFPAY ==
[2018-11-25 14:40] VITALS: BP 145/88
--- NOTE | 2018-11-25 14:46 | Emergency Department Report ---
Blank Doc - Documentation Documentation: 33-year-old female that presents with bilateral lower leg swellings. This initial assessment/diagnostic orders/clinical plan/treatment(s) is/are subject to change based on patient's health status, clinical progression and re- assessment by fellow clinical providers in the ED. Further treatment and workup at subsequent clinical providers discretion. Patient/guardians urged not to elope from the ED as their condition may be serious if not clinically assessed and managed. Initial orders include: 1- Patient sent to [facility] for further evaluation and treatment 2- labs 3- EKG 4- UA
[2018-11-25 15:13] LABS: Basophils % (Auto) 0.6 % (0.0-1.8); Eosinophils # (Auto) 0.3 K/mm3 (0.0-0.4); Hemoglobin 13.6 gm/dl (10.1-14.3); Lymphocytes # (Auto) 2.4 K/mm3 (1.2-5.4); Lymphocytes % (Auto) 35.7 % (13.4-35.0); Mean Corpuscular HGB Conc 33 % (30-34); Mean Corpuscular Volume 93 fl (79-97); Monocytes # (Auto) 0.3 K/mm3 (0.0-0.8); Monocytes % (Auto) 4.2 % (0.0-7.3); Platelet Count 213 K/mm3 (140-440); Red Cell Distribution Width 14.4 % (13.2-15.2)
[2018-11-25 15:36] LABS: BUN/Creatinine Ratio 9; Blood Urea Nitrogen 7 mg/dL (7-17); Calcium 8.8 mg/dL (8.4-10.2); Hemolysis Index 8
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
== END 2018-11-25 16:29 | disposition home or self-care (01) ==
LOC: ED 14:26
DX: R60.9 Edema, unspecified (principal); I10 Essential (primary) hypertension; E66.01 Morbid (severe) obesity due to excess calories; F17.200 Nicotine dependence, unspecified, uncomplicated; Z79.899 Other long term (current) drug therapy
CPT/HCPCS: 36415; 80048; 83880; 84703; 85025; 99283

== ENCOUNTER 2019-01-17 15:18 | Emergency (ER) | payer SELFPAY ==
--- NOTE | 2019-01-17 15:25 | Emergency Department Report ---
Blank Doc - Documentation Documentation: 33-year-old female that presents with URI symptoms. This initial assessment/diagnostic orders/clinical plan/treatment(s) is/are subject to change based on patient's health status, clinical progression and re- assessment by fellow clinical providers in the ED. Further treatment and workup at subsequent clinical providers discretion. Patient/guardians urged not to elope from the ED as their condition may be serious if not clinically assessed and managed. Initial orders include: 1- Patient sent to [facility] for further evaluation and treatment 2- CXR
--- NOTE | 2019-01-17 16:12 | XRay Report ---
CHEST 2 VIEWS INDICATION: cough. Cough for the past 3 days COMPARISON: 10/22/2018 FINDINGS: Support devices: None. Heart: Within normal limits. Lungs/pleura: No acute air space or interstitial disease. No pneumothorax. Additional findings: None. IMPRESSION: 1. No acute findings. Signer Name: Sidney Cohen MD Signed: 01/17/2019 4:07 PM Workstation Name: [id number]
[2019-01-17] MEDS ORDERED: predniSONE 20 MG TAB PO ONE (17:43)
[2019-01-17] MEDS ORDERED: guaiFENesin 100 MG/5 ML ORAL LIQD PO ONE (17:43)
--- NOTE | 2019-01-17 18:41 | Emergency Department Report ---
Minor Respiratory - HPI Chief Complaint: Upper Respiratory Infection Stated Complaint: COUGH/NOSE BLEEDING/SOB Time Seen by Provider: 01/17/19 15:23 Duration: 3 Days Minor Respiratory: Yes Able to Tolerate Fluids, Yes Cough, Yes Shortness of Breath, No Rhinorrhea, No Sore Throat, No Ear Pain, No Sick Contacts, No Hemoptysis, No Chest Pain, No Fever Other History: This 33-year-old female who presents to ED complaining of cough and congestion the past couple days. Patient also states she's been having a lot of runny nose and blowing her nose frequently. Patient states that she had one episode of nosebleed after blowing her nose. Patient states she is worried she might have an infection and wanted to be evaluated. She denies shortness of breath, chest pain, nausea vomiting abdominal pain. ED Review of Systems ROS: Stated complaint: COUGH/NOSE BLEEDING/SOB Other details as noted in HPI Comment: All other systems reviewed and negative ED Past Medical Hx - Past Medical History Previous Medical History?: No Hx Hypertension: Yes Additional medical history: Morbid Obesity - Surgical History Past Surgical History?: No - Social History Smoking Status: Current Every Day Smoker Substance Use Type: None - Medications Home Medications: Home Medications Medication Instructions Recorded Confirmed Last Taken Type Amoxicillin/Potassium Clav 1 each PO BID #14 tablet 02/18/18 Unknown Rx [Augmentin 875-125 Tablet] Fluticasone [Flonase] 1 spray NS QDAY #1 bottle 02/18/18 Unknown Rx HYDROcodone/APAP 5-325 [Duck 1 each PO Q4HR PRN #12 tablet 02/18/18 Unknown Rx 5/325] Naproxen [Naprosyn TAB] 500 mg PO Q8H PRN #20 tablet 04/02/18 Unknown Rx Amoxicillin [Trimox CAP] 500 mg PO Q8H #30 capsule 04/27/18 Unknown Rx Ibuprofen [Motrin 600 MG tab] 600 mg PO Q8H #15 tablet 04/27/18 Unknown Rx Methocarbamol [Robaxin-750] 750 mg PO Q6HR PRN #20 tablet 05/13/18 Unknown Rx hydroCHLOROthiazide [Hctz] 12.5 mg PO QDAY #30 capsule 05/13/18 Unknown Rx Ibuprofen [Motrin] 800 mg PO Q8HR PRN #30 tablet 06/22/18 Unknown Rx traMADol [Ultram] 50 mg PO Q6HR PRN #24 tablet 06/22/18 Unknown Rx Cyclobenzaprine [Flexeril] 10 mg PO TID PRN #30 tablet 08/23/18 Unknown Rx Naproxen [Naprosyn TAB] 500 mg PO BID #30 tablet 08/23/18 Unknown Rx Cyclobenzaprine [Flexeril] 10 mg PO TID PRN #20 tablet 09/28/18 Unknown Rx Ibuprofen [Motrin 800 MG tab] 800 mg PO Q8HR PRN #15 tablet 09/28/18 Unknown Rx Amoxicillin/Potassium Clav 1 each PO BID #14 tablet 10/22/18 Unknown Rx [Augmentin 875-125 Tablet] Fluticasone [Flonase] 1 spray NS QDAY #1 bottle 10/22/18 Unknown Rx Meclizine [Antivert] 25 mg PO TID PRN #12 tablet 10/22/18 Unknown Rx hydroCHLOROthiazide [Hctz] 12.5 mg PO QDAY #30 capsule 11/25/18 Unknown Rx ALBUTEROL Inhaler (OR & NICU) 2 puff IH QID PRN #1 inhalation 01/17/19 Unknown Rx [ProAir HFA Inhaler] Benzonatate [Tessalon Perles] 100 mg PO Q8HR #21 capsule 01/17/19 Unknown Rx Minor Respiratory Exam - Exam General: Vital signs noted. No distress. Alert and acting appropriately. HEENT: Yes Moist Mucous Membranes, No Pharyngeal Erythema, No Pharyngeal Exudates, No Rhinorrhea, No Conjuctival Injection, No Frontal Tenderness, No Maxillary Tenderness Ear: Neither TM Bulge, Neither TM Erythema, Neither EAC Pain, Neither EAC Discharge Neck: Yes Supple, No Adenopathy Lungs: Yes Good Air Exchange, No Wheezes, No Ronchi, No Stridor, No Cough, No Labored Respirations, No Retractions, No Use of Accessory Muscles, No Other Abnormal Lung Sounds Heart: Yes Regular, No Murmur Abdomen: Yes Normal Bowel Sounds, No Tenderness, No Peritoneal Signs Skin: No Rash, No Edema Neurologic: Alert and oriented, no deficits. Musculoskeletal: Unremarkable. ED Course Vital Signs 01/17/19 15:24 Temperature 98.4 F Pulse Rate 103 H Respiratory 20 Rate Blood Pressure 144/81 O2 Sat by Pulse 97 Oximetry ED Medical Decision Making - Radiology Data Radiology results: report reviewed, image reviewed INDICATION: cough. Cough for the past 3 days COMPARISON: 10/22/2018 FINDINGS: Support devices: None. Heart: Within normal limits. Lungs/pleura: No acute air space or interstitial disease. No pneumothorax. Additional findings: None. IMPRESSION: 1. No acute findings. Signer Name: Sidney Cohen MD Signed: 01/17/2019 4:07 PM Workstation Name: [id number] Transcribed By: UMAIR Dictated By: Sidney Cohen MD Electronically Authenticated By: Sidney Cohen MD Signed Date/Time: 01/17/19 1607 - Medical Decision Making 33-year-old female presents with upper respiratory infection with bronchitis. Chest x-ray shows no acute findings. Discussed findings with the patient. Discussed the patient to follow-up with primary care physician. Vital signs are normal patient is in no acute distress or respiratory distress Critical care attestation.: If time is entered above; I have spent that time in minutes in the direct care of this critically ill patient, excluding procedure time. ED Disposition Clinical Impression: Bronchitis Disposition: [id number] TO HOME OR SELFCARE Is pt being admited?: No Does the pt Need Aspirin: No Condition: Stable Instructions: Chronic Bronchitis (ED) Additional Instructions: Make sure to follow up with the primary care physician as discussed. Take all your medications as you've been prescribed. If you have any worsening symptoms or develop new symptoms please return to ED i mmediately. Prescriptions: ALBUTEROL Inhaler (OR & NICU) [ProAir HFA Inhaler] 2 puff IH QID PRN #1 inhalation PRN Reason: Shortness Of Breath Benzonatate [Tessalon Perles] 100 mg PO Q8HR #21 capsule Referrals: [facility] [Outside] - 3-5 Days Forms: Accompanied Note, Work/School Release Form(ED) Time of Disposition: 18:37
[2019-01-17 22:26] VITALS: BP 138/82
== END 2019-01-17 20:05 | disposition home or self-care (01) ==
LOC: ED 15:18
DX: J40 Bronchitis, not specified as acute or chronic (principal); J06.9 Acute upper respiratory infection, unspecified; I10 Essential (primary) hypertension; F17.200 Nicotine dependence, unspecified, uncomplicated; E66.01 Morbid (severe) obesity due to excess calories; Z68.43 Body mass index [BMI] 50.0-59.9, adult; Z79.899 Other long term (current) drug therapy
CPT/HCPCS: 71046; 99283; J7512